=== PATIENT | female | born 1950 | race Caucasian/White ===

== ENCOUNTER → 2016-10-22 | Outpatient (CLI) | payer MEDICARE, OTHER | LOC: RAD 08:31 | PROVIDERS: ATTEND Surgery | DX: R10.31 Right lower quadrant pain (principal) | CPT/HCPCS: 74177; 82565 ==

== ENCOUNTER → 2016-12-25 | Outpatient (CLI) | payer MEDICARE, OTHER ==
[2016-12-25 13:08] LABS: ABSOLUTE BASOPHILS # (AUTO) 0.1 10^3/uL (0.0-0.2); ABSOLUTE EOSINOPHILS # (AUTO) 0.4 10^3/uL (0.0-0.6); ABSOLUTE MONOCYTES (AUTO) 0.6 10^3/uL (0.1-1.4); ABSOLUTE NEUT (AUTO) 5.5 10^3/uL (1.7-8.2); BASOPHILS % (AUTO) 1.1 % (0-2); EOSINOPHILS % (AUTO) 4.2 % (0-6); HEMATOCRIT 35.4 % (36.0-47.0); HEMOGLOBIN 12.5 g/dL (12.0-15.5); HGB HCT DIFFERENCE 2.1; LYMPHOCYTES % (AUTO) 31.2 % (13-45); MEAN CORPUSCULAR HEMOGLOBIN 31.6 pg (27.0-33.4); MEAN CORPUSCULAR HGB CONC 35.3 g/dL (32.0-36.0); MEAN CORPUSCULAR VOLUME 90 fl (80-97); MONOCYTES % (AUTO) 6.8 % (3-13); RED BLOOD COUNT 3.96 10^6/uL (3.72-5.28); SEGMENTED NEUTROPHILS % (AUTO) 56.7 % (42-78); WHITE BLOOD COUNT 9.6 10^3/uL (4.0-10.5)
[2016-12-25 13:10] LABS: APPEARANCE,URINE SLIGHTLY-CLOUDY; BILIRUBIN,URINE NEGATIVE (NEGATIVE); GLUCOSE, URINE NEGATIVE (NEGATIVE); KETONES,URINE NEGATIVE (NEGATIVE); LEUKOCYTE ESTERASE,URINE SMALL (NEGATIVE); NITRITE,URINE NEGATIVE (NEGATIVE); PROTEIN,URINE NEGATIVE (NEGATIVE); URINE SPECIFIC GRAVITY 1.015; UROBILINOGEN,URINE NEGATIVE mg/dL (<2.0)
[2016-12-25 13:17] LABS: BLOOD UREA NITROGEN 26 mg/dL (7-20); CALCIUM 10.1 mg/dL (8.4-10.2); CARBON DIOXIDE 21 mmol/L (22-30); CREATININE RESULT 1.04 mg/dL (0.52-1.25); GLUCOSE 91 mg/dL (75-110); SODIUM 145.6 mmol/L (137-145)
[2016-12-25 13:18] LABS: ANION GAP 17 (5-19); CHLORIDE 108 mmol/L (98-107)
--- NOTE | 2016-12-25 13:20 | EKG REPORT ---
SEVERITY:- ABNORMAL ECG - SINUS RHYTHM NONSPECIFIC T ABNORMALITIES, ANTERIOR LEADS, UNCHANGED FROM 2015 EKG. : Confirmed by: Victor Hugo Hyde MD 25-Dec-2016 13:19:03
== END ==
LOC: OD 11:37
PROVIDERS: ATTEND Orthopaedic Surgery
DX: Z01.818 Encounter for other preprocedural examination (principal)
CPT/HCPCS: 36415; 71020; 80048; 81001; 85025; 93005; 93010

== ENCOUNTER → 2016-12-27 | Outpatient (CLI) | payer MEDICARE, OTHER | LOC: RAD 14:02 | PROVIDERS: ATTEND Student in an Organized Health Care Education/Training Program | DX: R91.1 Solitary pulmonary nodule (principal) | CPT/HCPCS: 71250 ==

== ENCOUNTER 2017-01-14 07:30 | Inpatient (IN) | payer MEDICARE, OTHER ==
[~2017-01-14 07:30] MED LIST: BUPIVACAINE INJ/PF LIPOSOME/PF 266 MG/20 ML SDV IJ PRN; IBUPROFEN 800 MG/NS 250 ML IV PRN; LACTATED RINGERS 1000 ML IV PRN; LANSOPRAZOLE 15 MG TAB.RAP.DR PO PRN; OXYCODONE HCL SR 10 MG TABLET PO PRN; SCOPOLAMINE HYDROBROMIDE 1.5 MG PATCH.TD72 TOP PRN; VANCOMYCIN HCL 1,000 MG in DEXTROSE 5%-WATER 250 ML IV PRN
[2017-01-14] MEDS ORDERED: ROCURONIUM BROMIDE INJ 50 MG/5 ML VIAL IV ONE (07:57)
[2017-01-14] MEDS ORDERED: SUCCINYLCHOLINE CHLORIDE INJ 200 MG/10 ML VIAL ONE (07:57)
[2017-01-14] MEDS ORDERED: THROMBIN (BOVINE) 5000 UNIT EPITAXIS KIT ONE (08:22)
[2017-01-14] MEDS ORDERED: THROMBIN (BOVINE) TOPICAL 20000 UNIT VIAL ONE (08:22)
[2017-01-14] MEDS ORDERED: BUPIVACAINE INJ/PF LIPOSOME/PF 266 MG/20 ML SDV ONE (10:57)
[2017-01-14] MEDS ORDERED: TRANEXAMIC ACID INJ/PF 1,000 MG/10 ML SDV IV ONE ×3 (11:07→14:00)
[2017-01-14] MEDS ORDERED: DEXMEDETOMIDINE INJ 80 MCG/20 ML VIAL IV ONE (11:07)
[2017-01-14] MEDS ORDERED: PROPOFOL INJ 200 MG/20 ML VIAL IV ONE (11:07)
[2017-01-14] MEDS ORDERED: MIDAZOLAM 2 MG/2 ML INJ ONE (11:07)
[2017-01-14] MEDS ORDERED: CEFAZOLIN INJ 1 GM VIAL ONE ×2 (11:08→11:09)
[2017-01-14] MEDS ORDERED: FENTANYL CITRATE INJ/PF 250 MCG/5 ML AMPULE ONE (11:26)
[2017-01-14] MEDS ORDERED: HYDROMORPHONE HCL INJ/PF 2 MG/ML AMPULE ONE ×2 (11:26→14:02)
[2017-01-14] MEDS ORDERED: ONDANSETRON HCL INJ/PF 4 MG/2 ML SDV IV PRN ×2 (12:18→12:46)
[2017-01-14] MEDS ORDERED: FENTANYL CITRATE INJ/PF 100 MCG/2 ML AMPUL IV PRN ×3 (12:18)
[2017-01-14] MEDS ORDERED: PROMETHAZINE HCL INJ 25 MG/1 ML VIAL IV PRN (12:18)
--- NOTE | 2017-01-14 12:45 | Operative Report ---
Operative Report DATE OF SURGERY: 01/14/17 PREOPERATIVE DIAGNOSIS: Left knee arthritis OPERATION: Left knee arthroplasty SURGEON: TARSHA CARVER ANESTHESIA: GA TISSUE REMOVED OR ALTERED: Bone to pathology PROCEDURE: Implants used: Femur: 1. Triathlon #4 CR femur Tibia: 3-tibia Tibial liner: 11 mm CS insert Patella: 29 mm oval patella Procedure with the patient supine on the operating table the left the limb is prepped and draped in a sterile fashion. The limb was elevated for exsanguination and the tourniquet inflated to 280 torr. A standard midline median parapatellar approach the knee is taken. Access is gained to the femoral canal through the intercondylar notch. Intramedullary alignment instrumentation used to resect 10 mm of distal femur in 5 of valgus. Sizing guide indicated a size 4 femur. Appropriate cutting jig is then used to fashion anterior posterior and chamfer cuts. A trial reduction femurs performed and this is judged to be adequate. Attention was next turned to the tibia. Using an extra medullary alignment system 9 millimeters was resected off the lateral tibial plateau. This is sized to a size 3 tibia. A trial reduction was now performed with a for femur and a 3 tibia using a 11 millimeters spacer. It is full extension and central patellofemoral tracking. The articular surface the patella was next resected using an oscillating saw. All trial implants were removed. Polymethylmethacrylate is mixed and used to cement the above implants in place. On adequate curing the cement excess cement was removed the tourniquet was deflated hemostasis obtained the wound is then closed in layers using interrupted Vicryl followed by jamel. A sterile compressive dressing was applied and the patient returned to recovery room in satisfactory condition.
[2017-01-14] MEDS ORDERED: DIPHENHYDRAMINE HCL 50 MG/ML VIAL IV PRN (12:46)
[2017-01-14] MEDS ORDERED: RINGERS SOLUTION,LACTATED 1,000 ML IV PRN (12:46)
[2017-01-14] MEDS ORDERED: MORPHINE SULFATE 10 MG/ML INJ IM PRN (12:46)
[2017-01-14] MEDS ORDERED: ONDANSETRON 4 MG TAB.RAPDIS PO PRN (12:46)
[2017-01-14] MEDS ORDERED: MORPHINE SULFATE 10 MG/ML INJ IV PRN ×3 (12:46)
[2017-01-14] MEDS ORDERED: ACETAMINOPHEN 325 MG TABLET PO PRN (12:46)
[2017-01-14] MEDS ORDERED: MAG HYDROX/AL HYDROX/SIMETH SUSP 30 ML UDCUP PO PRN (12:46)
[2017-01-14] MEDS ORDERED: ZOLPIDEM TARTRATE 5 MG TABLET PO PRN (12:46)
[2017-01-14] MEDS ORDERED: FENTANYL CITRATE INJ/PF 100 MCG/2 ML AMPUL ONE (13:30)
--- NOTE | 2017-01-14 13:33 | RADIOLOGY REPORT (SQ) ---
EXAM DESCRIPTION: KNEE LEFT 2 VIEWS COMPLETED DATE/TIME: 01/14/2017 1:21 pm REASON FOR STUDY: Post OP -Long Cassette in PACU M17.12 UNILATERAL PRIMARY OSTEOARTHRITIS, LEFT KNE E COMPARISON: None. NUMBER OF VIEWS: Two views. TECHNIQUE: AP and lateral radiographic images acquired of the left knee. LIMITATIONS: None. FINDINGS: MINERALIZATION: Normal. BONES: There is a left knee arthroplasty in good position. JOINT: No effusion. SOFT TISSUES: No soft tissue swelling. No radio-opaque foreign body. OTHER: No other significant finding. IMPRESSION: Left knee arthroplasty in good position. TECHNICAL DOCUMENTATION: JOB ID: [id number] [employer]- All Rights Reserved
[2017-01-14] MEDS ORDERED: ACETAMINOPHEN 100 ML IV ONE (14:01)
[2017-01-14] MEDS: IBUPROFEN 800 MG in NORMAL SALINE 250 ML IV SCH (19:33)
[2017-01-14] MEDS: SENNOSIDES/DOCUSATE 8.6-50 MG 1 EACH TABLET PO SCH (19:34)
[2017-01-14] MEDS: RIVAROXABAN 10 MG TABLET PO SCH (20:49)
[2017-01-14] MEDS: OXYCODONE HCL SR 10 MG TABLET PO SCH (20:49)
[2017-01-14] MEDS: DULOXETINE HCL 30 MG CAPSULE.DR PO SCH (20:51)
[2017-01-14] MEDS: TRAZODONE HCL 50 MG TABLET PO SCH (20:51)
[2017-01-14] MEDS: OXYCODONE HCL IR 5 MG TABLET PO PRN (22:11)
[2017-01-15] MEDS ORDERED: VANCOMYCIN HCL 1,000 MG in DEXTROSE 5%-WATER 250 ML IV ONE (01:00)
[2017-01-15] MEDS: HYDROMORPHONE HCL INJ/PF 2 MG/ML AMPULE IV PRN ×3 (01:20→11:58)
[2017-01-15] MEDS: IBUPROFEN 800 MG in NORMAL SALINE 250 ML IV SCH ×3 (03:00→17:43)
[2017-01-15] MEDS: OXYCODONE HCL IR 5 MG TABLET PO PRN (04:08)
[2017-01-15 04:47] LABS: HEMATOCRIT 30.5 % (36.0-47.0); HEMOGLOBIN 10.5 g/dL (12.0-15.5); MEAN CORPUSCULAR HEMOGLOBIN 31.6 pg (27.0-33.4); MEAN CORPUSCULAR HGB CONC 34.5 g/dL (32.0-36.0); MEAN CORPUSCULAR VOLUME 91 fl (80-97); RED BLOOD COUNT 3.34 10^6/uL (3.72-5.28); RED CELL DISTRIBUTION WIDTH 14.6 % (11.5-14.0); WHITE BLOOD COUNT 7.9 10^3/uL (4.0-10.5)
[2017-01-15 05:07] LABS: ANION GAP 8 (5-19); BLOOD UREA NITROGEN 19 mg/dL (7-20); CALCIUM 8.5 mg/dL (8.4-10.2); CARBON DIOXIDE 22 mmol/L (22-30); CHLORIDE 109 mmol/L (98-107); CREATININE RESULT 1.24 mg/dL (0.52-1.25); GLUCOSE 95 mg/dL (75-110); SODIUM 139.1 mmol/L (137-145)
[2017-01-15] MEDS: LANSOPRAZOLE 30 MG TAB.RAP.DR PO SCH (05:36)
--- NOTE | 2017-01-15 06:46 | PDOC PROGRESS REPORT ---
Subjective Progress Note for:: 01/15/17 Subjective:: Patient with minor complaints of pain Physical Exam Vital Signs: Temp Pulse Resp BP Pulse Ox 37.1 C 60 18 98/61 L 93 01/15/17 04:00 01/15/17 04:00 01/15/17 04:00 01/15/17 04:00 01/15/17 04:35 Pulse Oximeter Continuous Start: 01/14/17 16: 16 Freq: Status: Active Document 01/15/17 04:35 JSM (Rec: 01/15/17 04:43 JSM [id number]) Pulse Oximetry Assessment Oxygen Saturation (92-100) 93 Oxygen Delivery Method Room Air Equipment Usage Equipment in Use Continuous SpO2 Machine # 5 Intake & Output 01/13/17 01/14/17 01/15/17 06:59 06:59 06:59 Intake Total 1940 Output Total 1450 Balance 490 Weight 80.7 kg General appearance: PRESENT: mild distress Head exam: PRESENT: normocephalic Respiratory exam: PRESENT: unlabored Cardiovascular exam: PRESENT: RRR Pulses: PRESENT: +1 pedal pulses bilateral Vascular exam: PRESENT: normal capillary refill GI/Abdominal exam: PRESENT: soft Rectal exam: PRESENT: deferred Extremities exam: PRESENT: other - Lower extremity dressing clean dry and intact. Distal neurovascular examination is intact. Psychiatric exam: PRESENT: appropriate affect, normal mood. ABSENT: homicidal ideation, suicidal ideation Skin exam: PRESENT: dry, intact, warm. ABSENT: cyanosis, rash Results Laboratory Results: 01/15/17 04:25 01/15/17 04:25 01/14/17 01/15/17 01/15/17 11:02 04:25 04:25 WBC 7.9 RBC 3.34 L Hgb 10.5 L Hct 30.5 L MCV 91 MCH 31.6 MCHC 34.5 RDW 14.6 H Plt Count 236 Sodium 139.1 Potassium 4.1 4.0 Chloride 109 H Carbon Dioxide 22 Anion Gap 8 BUN 19 Creatinine 1.24 Est GFR ( Amer) 52 L Est GFR (Non-Af Amer) 43 L Glucose 95 Calcium 8.5 Impressions: Knee X-Ray 01/14/17 12:47 IMPRESSION: Left knee arthroplasty in good position. Status: Imported from PACS Assessment & Plan - Diagnosis (1) Arthritis of knee, left Is this a current diagnosis for this admission?: YesPlan: 6-year-old white female postop day 1 left knee arthroplasty with uneventful postoperative course. She made good progress with physical therapy yesterday. She will continue with physical therapy today. Anticipate discharge home tomorrow with home health custodial health physical therapy - Time Time Spent with patient: 15-24 minutes Anticipated discharge: Home with Homehealth Within: within 24 hours
[2017-01-15] MEDS ORDERED: EPA PO SCH (08:00)
[2017-01-15] MEDS ORDERED: DHA PO SCH (08:00)
[2017-01-15] MEDS ORDERED: OMEGA PO SCH (08:00)
[2017-01-15] MEDS ORDERED: FISH OIL PO SCH (08:00)
[2017-01-15] MEDS ORDERED: (PENDING PHARMACY ID) (Potassium Chloride [Potassium Chloride] 10 MEQ) PO SCH (08:00)
[2017-01-15] MEDS ORDERED: [UNRECOGNIZED DRUG - OTHER] PO SCH (10:00)
[2017-01-15] MEDS ORDERED: HCTZ PO SCH (10:00)
[2017-01-15] MEDS ORDERED: B LONGUM PO SCH (10:00)
[2017-01-15] MEDS ORDERED: B BIFIDUM PO SCH (10:00)
[2017-01-15] MEDS ORDERED: BISOPROLOL FUMARATE PO SCH (10:00)
[2017-01-15] MEDS ORDERED: GASSERI PO SCH (10:00)
[2017-01-15] MEDS: OMEGA-3 ACID ETHYL ESTERS 1 GM CAPSULE PO SCH (10:02)
[2017-01-15] MEDS: SENNOSIDES/DOCUSATE 8.6-50 MG 1 EACH TABLET PO SCH ×2 (10:02→17:43)
[2017-01-15] MEDS: PRENATAL VITAMIN W-O CA NO5/FE FUMARATE/FA CAPSULE PO SCH (10:02)
[2017-01-15] MEDS: POTASSIUM CHLORIDE 10 MEQ TABLET.SA PO SCH (10:03)
[2017-01-15] MEDS: LACTOBACILLUS ACIDOPHILUS 250 MG TAB PO SCH (10:03)
[2017-01-15] MEDS: TRIAMTERENE/HYDROCHLOROTHIAZIDE 37.5-25 MG TABLET PO SCH (10:03)
[2017-01-15] MEDS: OXYCODONE HCL SR 10 MG TABLET PO SCH ×2 (10:04→22:54)
[2017-01-15] MEDS: TRAZODONE HCL 50 MG TABLET PO SCH (17:45)
[2017-01-15] MEDS ORDERED: DIPHENHYDRAMINE HCL 25 MG CAPSULE PO PRN (19:31)
[2017-01-15] MEDS ORDERED: TRAZODONE HCL 50 MG TABLET PO SCH (22:00)
[2017-01-15] MEDS: RIVAROXABAN 10 MG TABLET PO SCH (22:52)
[2017-01-15] MEDS: DULOXETINE HCL 30 MG CAPSULE.DR PO SCH (22:52)
[2017-01-16 05:15] LABS: HEMATOCRIT 29.2 % (36.0-47.0); HEMOGLOBIN 10.3 g/dL (12.0-15.5); HGB HCT DIFFERENCE 1.7; MEAN CORPUSCULAR HEMOGLOBIN 31.8 pg (27.0-33.4); MEAN CORPUSCULAR HGB CONC 35.2 g/dL (32.0-36.0); MEAN CORPUSCULAR VOLUME 91 fl (80-97); RED BLOOD COUNT 3.22 10^6/uL (3.72-5.28); RED CELL DISTRIBUTION WIDTH 14.3 % (11.5-14.0); WHITE BLOOD COUNT 10.7 10^3/uL (4.0-10.5)
[2017-01-16] MEDS: LANSOPRAZOLE 30 MG TAB.RAP.DR PO SCH (06:09)
[2017-01-16] MEDS: HYDROMORPHONE HCL INJ/PF 2 MG/ML AMPULE IM PRN ×2 (06:10→11:02)
--- NOTE | 2017-01-16 08:14 | PDOC DISCHARGE SUMMARY ---
General - Admit/Disc Date/PCP Admission Date/Primary Care Provider: 01/14/17 10:21 ED PHILLIPS, Discharge Date: 01/16/17 - Discharge Diagnosis (1) Arthritis of knee, left Is this a current diagnosis for this admission?: Yes - Additional Information Resuscitation Status: Full Code Discharge Diet: As Tolerated, Regular Discharge Activity: Activity As Tolerated, Balance Activity w/Rest Home Medications: Duloxetine HCl 60 mg PO QHS 06/29/15 Bisoprolol Fumarate/Hctz [Ziac 5-6.25 mg Tablet] 1 tab PO QAM 06/04/16 Potassium Chloride 10 meq PO QAM 06/04/16 Trazodone HCl 100 mg PO QPM 06/04/16 Triamterene/Hydrochlorothiazid [Triamterene-Hctz 37.5-25 mg Tb] 37.5 mg PO QAM 06/04/16 l Gasseri/B Bifidum/B Longum [En[facility]v [facility] Capsule] 1 each PO DAILY Aspirin [Aspirin EC] 81 mg PO QAM 01/10/17 Ibuprofen [Motrin 600 mg Tablet] 600 mg PO DAILY PRN 01/10/17 Lindsay-3/Dha/Epa/Fish Oil [Fish Oil Lindsay-3 EC 1,200 mg] 1 each PO QAM 01/10/17 Oxycodone HCl [Oxy-Ir 5 mg Tablet] 5 mg PO Q6HP PRN #0 tablet 01/16/17 Rivaroxaban [Xarelto 10 mg Tablet] 10 mg PO QHS #0 tablet 01/16/17 History of Present Illness History of Present Illness: JAY NESBITT is a 66 year old female with progressive left knee pain and functional disability secondary osteoarthritis. Patient is admitted for elective left knee arthroplasty. Hospital Course Hospital Course: Patient is admitted through the operating room where she undergoes uncomplicated left knee arthroplasty. She was returned to the floor in satisfactory condition. She makes excellent progress with physical therapy and subsequently for discharge home on postop day #2. Physical Exam Vital Signs: Temp Pulse Resp BP Pulse Ox 38.1 C H 92 20 118/91 H 100 01/16/17 00:00 01/16/17 00:00 01/16/17 00:00 01/16/17 00:00 01/16/17 00:00 Pulse Oximeter Continuous Start: 01/14/17 16: 16 Freq: Status: Active Document 01/15/17 04:35 SELMA (Rec: 01/15/17 04:43 SELMA [id number]) Pulse Oximetry Assessment Oxygen Saturation (92-100) 93 Oxygen Delivery Method Room Air Equipment Usage Equipment in Use Continuous SpO2 Machine # 5 Intake & Output 01/15/17 01/16/17 01/17/17 06:59 06:59 06:59 Intake Total 1940 1710 Output Total 1450 Balance 490 1710 Weight 80.7 kg 79.1 kg General appearance: PRESENT: mild distress Head exam: PRESENT: normocephalic Eye exam: PRESENT: EOMI Respiratory exam: PRESENT: unlabored Cardiovascular exam: PRESENT: RRR Pulses: PRESENT: +1 pedal pulses bilateral Vascular exam: PRESENT: normal capillary refill GI/Abdominal exam: PRESENT: soft Rectal exam: PRESENT: deferred Extremities exam: PRESENT: other - Left lower extremity picot dressing clean dry and intact. There is a modest amount of calf edema. Distal neurovascular examination is intact. Neurological exam: PRESENT: alert, awake, oriented to person, oriented to place , oriented to time, oriented to situation. ABSENT: motor sensory deficit Psychiatric exam: PRESENT: appropriate affect, normal mood. ABSENT: homicidal ideation, suicidal ideation Skin exam: PRESENT: dry, intact, warm. ABSENT: cyanosis, rash Results Laboratory Results: 01/16/17 04:37 01/15/17 04:25 01/16/17 04:37 WBC 10.7 H RBC 3.22 L Hgb 10.3 L Hct 29.2 L MCV 91 MCH 31.8 MCHC 35.2 RDW 14.3 H Plt Count 227 Impressions: Knee X-Ray 01/14/17 12:47 IMPRESSION: Left knee arthroplasty in good position. Status: Imported from PACS Qualifiers PATEINT BEING DISCHARGED WITH ANY OF THE FOLLOWING DIAGNOSIS?: No VTE patient discharged on overlapping Therapy?: Yes Plan Discharge Plan: To be discharged home with home health nursing, home health physical therapy, will walker, bedside commode. Visiting nurse service to change the left picot dressing on postop day #7 replaced with an OpSite. Follow-up will be with Dr. Aguilar in the [facility] for surgery approximately 2 weeks for staple removal. Time Spent: Less than 30 Minutes
[2017-01-16 08:18] VITALS: BP 98/63
[2017-01-16] MEDS: OXYCODONE HCL IR 5 MG TABLET PO PRN (10:22)
[2017-01-16] MEDS: LACTOBACILLUS ACIDOPHILUS 250 MG TAB PO SCH (10:22)
[2017-01-16] MEDS: PRENATAL VITAMIN W-O CA NO5/FE FUMARATE/FA CAPSULE PO SCH (10:23)
[2017-01-16] MEDS: OMEGA-3 ACID ETHYL ESTERS 1 GM CAPSULE PO SCH (10:23)
[2017-01-16] MEDS: OXYCODONE HCL SR 10 MG TABLET PO SCH (10:23)
[2017-01-16] MEDS: SENNOSIDES/DOCUSATE 8.6-50 MG 1 EACH TABLET PO SCH (10:23)
[2017-01-16] MEDS: POTASSIUM CHLORIDE 10 MEQ TABLET.SA PO SCH (10:24)
[2017-01-16] MEDS: TRIAMTERENE/HYDROCHLOROTHIAZIDE 37.5-25 MG TABLET PO SCH (10:28)
== END 2017-01-16 11:15 | disposition home health service (06) | DRG 470 ==
LOC: INOR 10:21 → 4S 15:42
PROVIDERS: ADMIT Orthopaedic Surgery; ATTEND Orthopaedic Surgery
PROC: 0SRD0J9 Replacement of Left Knee Joint with Synthetic Substitute, Cemented, Open Approach (ICD-10-PCS; principal; 2017-01-14 12:30)
DX: M17.12 Unilateral primary osteoarthritis, left knee (principal); F32.9 Major depressive disorder, single episode, unspecified; F41.9 Anxiety disorder, unspecified; F43.10 Post-traumatic stress disorder, unspecified; I10 Essential (primary) hypertension; G47.00 Insomnia, unspecified; Z79.82 Long term (current) use of aspirin; Z79.899 Other long term (current) drug therapy; Z88.6 Allergy status to analgesic agent; Z88.8 Allergy status to other drugs, medicaments and biological substances; Z90.49 Acquired absence of other specified parts of digestive tract; Z90.710 Acquired absence of both cervix and uterus; Z88.1 Allergy status to other antibiotic agents
CPT/HCPCS: 01402; 36415; 80048; 84132; 85027; 88305; 88311; 94762; 94799; C9290; G8978-GP; G8979-GP; G8987-GO; G8988-GO; G8989-GO; J0131; J0330; J0690; J1170; J1200; J1741; J2250; J2704; J3010; J3370; J3490; J7050; J7060

== ENCOUNTER → 2017-03-08 | Outpatient (CLI) | payer MEDICARE, OTHER ==
--- NOTE | 2017-03-08 13:55 | RADIOLOGY REPORT (SQ) ---
EXAM DESCRIPTION: CHEST PA/LATERAL COMPLETED DATE/TIME: 03/08/2017 1:39 pm REASON FOR STUDY: PRE OP COMPARISON: 12/25/2016 EXAM PARAMETERS: NUMBER OF VIEWS: two views TECHNIQUE: Digital Frontal and Lateral radiographic views of the chest acquired. RADIATION DOSE: NA LIMITATIONS: none FINDINGS: LUNGS AND PLEURA: Nodular density overlying the right midlung field is again noted this pr esumably related to old rib fracture which is demonstrated on CT. No pulmonary nodules are noted. T here is no consolidation or effusions. MEDIASTINUM AND HILAR STRUCTURES: No masses or contour abnormalities. HEART AND VASCULAR STRUCTURES: Heart normal size. No evidence for failure. BONES: No acute findings. HARDWARE: None in the chest. OTHER: No other significant finding. IMPRESSION: NO SIGNIFICANT RADIOGRAPHIC FINDING IN THE CHEST. TECHNICAL DOCUMENTATION: JOB ID: [id number] [employer]- All Rights Reserved
[2017-03-08 14:25] LABS: ABSOLUTE BASOPHILS # (AUTO) 0.1 10^3/uL (0.0-0.2); ABSOLUTE EOSINOPHILS # (AUTO) 0.2 10^3/uL (0.0-0.6); ABSOLUTE LYMPHOCYTES (AUTO) 3.7 10^3/uL (0.5-4.7); ABSOLUTE MONOCYTES (AUTO) 0.5 10^3/uL (0.1-1.4); BASOPHILS % (AUTO) 0.8 % (0-2); EOSINOPHILS % (AUTO) 2.2 % (0-6); HEMATOCRIT 37.2 % (36.0-47.0); HEMOGLOBIN 12.3 g/dL (12.0-15.5); HGB HCT DIFFERENCE -0.3; LYMPHOCYTES % (AUTO) 39.2 % (13-45); MEAN CORPUSCULAR HEMOGLOBIN 29.4 pg (27.0-33.4); MEAN CORPUSCULAR HGB CONC 32.9 g/dL (32.0-36.0); MEAN CORPUSCULAR VOLUME 89 fl (80-97); MONOCYTES % (AUTO) 5.3 % (3-13); RED BLOOD COUNT 4.17 10^6/uL (3.72-5.28); RED CELL DISTRIBUTION WIDTH 15.2 % (11.5-14.0); SEGMENTED NEUTROPHILS % (AUTO) 52.5 % (42-78); WHITE BLOOD COUNT 9.5 10^3/uL (4.0-10.5)
[2017-03-08 14:28] LABS: APPEARANCE,URINE CLEAR; BILIRUBIN,URINE NEGATIVE (NEGATIVE); GLUCOSE, URINE NEGATIVE (NEGATIVE); KETONES,URINE NEGATIVE (NEGATIVE); LEUKOCYTE ESTERASE,URINE SMALL (NEGATIVE); NITRITE,URINE NEGATIVE (NEGATIVE); PROTEIN,URINE NEGATIVE (NEGATIVE); URINE SPECIFIC GRAVITY 1.004; UROBILINOGEN,URINE NEGATIVE mg/dL (<2.0)
[2017-03-08 14:48] LABS: ANION GAP 13 (5-19); BLOOD UREA NITROGEN 26 mg/dL (7-20); CALCIUM 9.5 mg/dL (8.4-10.2); CARBON DIOXIDE 20 mmol/L (22-30); CHLORIDE 107 mmol/L (98-107); CREATININE RESULT 1.01 mg/dL (0.52-1.25); GLUCOSE 81 mg/dL (75-110); POTASSIUM 4.1 mmol/L (3.6-5.0); SODIUM 139.9 mmol/L (137-145)
--- NOTE | 2017-03-08 20:16 | EKG REPORT ---
SEVERITY:- ABNORMAL ECG - SINUS RHYTHM ABNORMAL T, CONSIDER ISCHEMIA, ANTERIOR LEADS : Confirmed by: Victor Hugo Hyde MD 08-Mar-2017 20:15:53
== END ==
LOC: OD 12:50
PROVIDERS: ATTEND Orthopaedic Surgery
DX: Z01.810 Encounter for preprocedural cardiovascular examination (principal); Z01.812 Encounter for preprocedural laboratory examination; Z01.818 Encounter for other preprocedural examination
CPT/HCPCS: 36415; 71020; 80048; 81001; 85025; 93005; 93010

== ENCOUNTER → 2017-04-05 | Outpatient (CLI) | payer MEDICARE, OTHER ==
[2017-04-08 09:24] LABS: ABSOLUTE BASOPHILS # (AUTO) 0.1 10^3/uL (0.0-0.2); ABSOLUTE EOSINOPHILS # (AUTO) 0.2 10^3/uL (0.0-0.6); ABSOLUTE LYMPHOCYTES (AUTO) 2.9 10^3/uL (0.5-4.7); ABSOLUTE MONOCYTES (AUTO) 0.6 10^3/uL (0.1-1.4); ABSOLUTE NEUT (AUTO) 4.7 10^3/uL (1.7-8.2); BASOPHILS % (AUTO) 0.9 % (0-2); EOSINOPHILS % (AUTO) 2.3 % (0-6); HEMATOCRIT 35.4 % (36.0-47.0); HEMOGLOBIN 12.2 g/dL (12.0-15.5); HGB HCT DIFFERENCE 1.2; LYMPHOCYTES % (AUTO) 33.9 % (13-45); MEAN CORPUSCULAR HEMOGLOBIN 30.8 pg (27.0-33.4); MEAN CORPUSCULAR HGB CONC 34.4 g/dL (32.0-36.0); MEAN CORPUSCULAR VOLUME 90 fl (80-97); MONOCYTES % (AUTO) 6.7 % (3-13); RED BLOOD COUNT 3.96 10^6/uL (3.72-5.28); RED CELL DISTRIBUTION WIDTH 15.6 % (11.5-14.0); SEGMENTED NEUTROPHILS % (AUTO) 56.2 % (42-78); WHITE BLOOD COUNT 8.4 10^3/uL (4.0-10.5)
[2017-04-08 09:35] LABS: ALANINE AMINOTRANSFERASE 24 U/L (9-52); ALBUMIN 4.4 g/dL (3.5-5.0); ALKALINE PHOSPHATASE 90 U/L (38-126); ANION GAP 14 (5-19); ASPARTATE AMINO TRANSFERASE 21 U/L (14-36); BILIRUBIN,DIRECT 0.4 mg/dL (0.0-0.4); BILIRUBIN,TOTAL 0.6 mg/dL (0.2-1.3); BLOOD UREA NITROGEN 30 mg/dL (7-20); CALCIUM 10.1 mg/dL (8.4-10.2); CARBON DIOXIDE 20 mmol/L (22-30); CHLORIDE 108 mmol/L (98-107); CREATININE RESULT 1.15 mg/dL (0.52-1.25); GLUCOSE 89 mg/dL (75-110); POTASSIUM 3.9 mmol/L (3.6-5.0); SODIUM 142.1 mmol/L (137-145); TOTAL PROTEIN 7.9 g/dL (6.3-8.2)
[2017-04-08 10:05] LABS: ERYTHROCYTE SEDIMENTATION RATE 25 mm/hr (0-30)
[2017-04-08 10:10] LABS: THYROID STIMULATING HORMONE 0.78 uIU/mL (0.47-4.68)
== END ==
LOC: LAB 16:05
PROVIDERS: ATTEND Student in an Organized Health Care Education/Training Program
DX: R53.82 Chronic fatigue, unspecified (principal); F41.1 Generalized anxiety disorder; R63.5 Abnormal weight gain; M13.859 Other specified arthritis, unspecified hip
CPT/HCPCS: 36415; 80053; 82306; 82607; 84439; 84443; 85025; 85652

== ENCOUNTER → 2017-04-05 | Day surgery (SDC) | payer MEDICARE, OTHER ==
--- NOTE | 2017-04-05 16:38 | RADIOLOGY REPORT (SQ) ---
EXAM DESCRIPTION: PICC INSERTION; U/S GUIDE FOR VASCULAR ACCESS; FLUORO/CV PLACEMENT COMPLETED DATE/TIME: 04/05/2017 4:09 pm REASON FOR STUDY: ENCOUNTER FOR ADJUSTMENT AND MANAGEMENT OF VASCULAR ACCESS DEVICE; IV ACCESS; IV A CCESS FOR OPERATION M25.562 PAIN IN LEFT KNEE Z45.2 ENCOUNTER FOR ADJUSTMENT AND MANAGEMENT OF VAD COMPARISON: None. FLUOROSCOPY TIME: 1.4 minutes 1 digital radiographic and 1 ultrasound image saved to PACS. TECHNIQUE: Fluoroscopic and ultrasound guided PICC placement. LIMITATIONS: None. PROCEDURE: After written consent and assessment were obtained, the patient was brought into the fluo roscopy room and place supine on the table. Ultrasound was used on the patient's right arm for PICC access. The right arm was prepped and draped in a sterile fashion along with the ultrasound probe. Th e entry site was anesthetized with 1% lidocaine. A 21 gauge 7 cm needle was advanced through the skin and into the right basilic vein under live ultrasound guidance. An ultrasound image was saved to [facility] confirming access site. A .018 guide wire was then inserted through the needle and into the venou s system. The needle was the removed and an 11 blade scalpel was used to make a 1cm skin incision. A 5 fr peel-away sheath was advanced over the wire and into the venous system. A measurement was then made using the existing wire and live fluoroscopic guidance. The wire was then removed and the trimme d. The PICC was advanced through the peel-away sheath and into the venous system. The peel-away sheat h was removed and the catheter was adhered to the patients arm with a stat lock. The catheter was the n aspirated and flushed and a sterile bandage was placed over the access site. A fluoroscopic spot i mage was saved to PACS confirming the catheter tip within the superior vena cava. Initial attempt at placement of the PICC catheter through the left arm was unsuccessful. IMPRESSION: SUCCESSFUL PLACEMENT OF A 5 FR DUAL LUMEN 33 CM PICC IN THE right basilic VEIN. COMMENT: Patient medication list reviewed: Yes- Quality ID# 130:Eligible professional attests to doc umenting in the medical record they obtained, updated, or reviewed the patient's current medications. . Quality ID 145: Final reports for procedures using fluoroscopy that document radiation exposure valerie nhi, or exposure time and number of fluorographic images (if radiation exposure indices are not avail able) Quality ID #76: The patient was prepped and draped using maximum sterile barrier technique including cap, mask, sterile gown, sterile gloves, a large sterile sheet, hand hygiene, and 2% Chlorhexidine fo r cutaneous antisepsis. When ultrasound is used, sterile ultrasound techniques are followed requiring sterile gel and sterile probes. TECHNICAL DOCUMENTATION: JOB ID: [id number] [employer]- All Rights Reserved
== END ==
LOC: RAD 14:32
PROVIDERS: ATTEND Orthopaedic Surgery
PROC: 05HB33Z Insertion of Infusion Device into Right Basilic Vein, Percutaneous Approach (ICD-10-PCS; principal; 2017-04-05)
DX: M25.562 Pain in left knee (principal); I10 Essential (primary) hypertension; G83.10 Monoplegia of lower limb affecting unspecified side; R29.898 Other symptoms and signs involving the musculoskeletal system; M16.11 Unilateral primary osteoarthritis, right hip; Z96.652 Presence of left artificial knee joint; Z45.2 Encounter for adjustment and management of vascular access device
CPT/HCPCS: 36569; 77001; 76937; J1642

== ENCOUNTER 2017-04-08 08:08 | Inpatient (IN) | payer MEDICARE, OTHER ==
[~2017-04-08 08:08] MED LIST changes: +CEFAZOLIN INJ 1 GM VIAL IV PRN; +DEXAMETHASONE SOD PHOSPHATE INJ 4 MG/1 ML VIAL ONE; +GLYCOPYRROLATE INJ 0.4 MG/2 ML VIAL ONE; +LIDOCAINE 0.5% INJ-PF (5 MG/ML) 50 ML SDV SUBCUT PRN; +LIDOCAINE 2% INJ-PF (20 MG/ML) 10 ML AMPUL ONE; +METOCLOPRAMIDE HCL INJ/PF 10 MG/2 ML SDV ONE; +ONDANSETRON HCL INJ/PF 4 MG/2 ML SDV ONE; +SUCCINYLCHOLINE CHLORIDE INJ 200 MG/10 ML VIAL ONE
[2017-04-08] MEDS ORDERED: THROMBIN (BOVINE) 5000 UNIT EPITAXIS KIT ONE (08:50)
[2017-04-08] MEDS ORDERED: BUPIVACAINE INJ/PF LIPOSOME/PF 266 MG/20 ML SDV ONE (08:50)
[2017-04-08] MEDS ORDERED: THROMBIN (BOVINE) TOPICAL 20000 UNIT VIAL ONE (08:50)
[2017-04-08] MEDS ORDERED: FENTANYL CITRATE INJ/PF 100 MCG/2 ML AMPUL ONE (09:31)
[2017-04-08] MEDS ORDERED: HYDROMORPHONE HCL INJ/PF 2 MG/ML AMPULE ONE (09:31)
[2017-04-08] MEDS ORDERED: TRANEXAMIC ACID INJ/PF 1,000 MG/10 ML SDV IV ONE ×3 (09:32→14:30)
[2017-04-08] MEDS ORDERED: MIDAZOLAM 2 MG/2 ML INJ ONE (09:32)
[2017-04-08] MEDS ORDERED: PROPOFOL INJ 200 MG/20 ML VIAL IV ONE (09:32)
[2017-04-08] MEDS ORDERED: ACETAMINOPHEN 100 ML IV ONE (09:32)
[2017-04-08] MEDS ORDERED: EPHEDRINE SULFATE INJ 50 MG/1 ML AMPULE ONE (09:32)
[2017-04-08] MEDS ORDERED: MEPERIDINE HCL/PF INJ 25 MG/1 ML DISP.SYRIN IV PRN (11:02)
[2017-04-08] MEDS ORDERED: FENTANYL CITRATE INJ/PF 100 MCG/2 ML AMPUL IV PRN ×3 (11:02)
[2017-04-08] MEDS ORDERED: DIPHENHYDRAMINE HCL 50 MG/ML VIAL IV PRN ×2 (11:02→11:30)
[2017-04-08] MEDS ORDERED: PROMETHAZINE HCL INJ 25 MG/1 ML VIAL IV PRN ×2 (11:02)
[2017-04-08] MEDS ORDERED: ONDANSETRON HCL INJ/PF 4 MG/2 ML SDV IV PRN ×3 (11:02→12:32)
--- NOTE | 2017-04-08 11:29 | Operative Report ---
Operative Report DATE OF SURGERY: 04/08/17 PREOPERATIVE DIAGNOSIS: r hip oa OPERATION: Right hip arthroplasty SURGEON: TARSHA CARVER ANESTHESIA: Spinal TISSUE REMOVED OR ALTERED: Hip arthroplasty right ESTIMATED BLOOD LOSS: 150 PROCEDURE: Implants used: Femur: Luca accolade 2 stem size 4 Acetabular shell: 52 mm PSL shell Liner: 36 mm flat cross-linked polyethylene liner Head: 36 millimeter head -5 neck The patient is placed in a left lateral decubitus position on the operating table. The right lower extremity and hindquarter is prepped and draped in a sterile fashion. A curvilinear incision was made over the greater trochanter a posterior approach the hip was taken. The femoral head is dislocated and the femoral neck transected using an oscillating saw. Attention was next turned to the acetabulum. Soft tissues cleared off the acetabulum using electrocautery. The acetabulum was then prepared using a series of hemispherical reamers until a 52 millimeters reamer is seated. Subsequently a 52 millimeters [place] PSL shell is impacted into position and secured with one screw. A standard flat 36 millimeters cross-link liner is impacted into the shell. Attention was next turned to the femur. Access is gained to the femoral canal using a box osteotome to the piriformis fossa. The femur is then prepared using a series of broaches until a number 4 broach is seated. A trial reduction was now performed using a 36 millimeters head with -5 neck. Preoperative leg length was recreated and is excellent anterior posterior stability. A decision was made to proceed with the above construct. All trial implants were removed. The wound is irrigated with pulsed lavage. A number 4 stem is impacted into the femoral canal. A trial reduction was again performed with a 36 mm head and a -5 neck. Findings as previously. The hip was dislocated one last time and the final chrome-cobalt head is impacted onto the trunnion. The hip was reduced. Wound is copiously irrigated with pulsed lavage. Sent closed in layers using interrupted Vicryl followed by jamel. A sterile dressing is applied and the patient's returned to recovery room in satisfactory patient.
[2017-04-08] MEDS ORDERED: ZOLPIDEM TARTRATE 5 MG TABLET PO PRN (11:30)
[2017-04-08] MEDS ORDERED: MAG HYDROX/AL HYDROX/SIMETH SUSP 30 ML UDCUP PO PRN (11:30)
[2017-04-08] MEDS ORDERED: MORPHINE SULFATE 10 MG/ML INJ IM PRN (11:30)
[2017-04-08] MEDS ORDERED: RINGERS SOLUTION,LACTATED 1,000 ML IV PRN (11:30)
[2017-04-08] MEDS ORDERED: MORPHINE SULFATE 10 MG/ML INJ IV PRN ×3 (11:30)
[2017-04-08] MEDS ORDERED: ACETAMINOPHEN 325 MG TABLET PO PRN (11:30)
[2017-04-08] MEDS ORDERED: ONDANSETRON 4 MG TAB.RAPDIS PO PRN ×2 (11:30→12:32)
[2017-04-08] MEDS: FENTANYL CITRATE INJ/PF 100 MCG/2 ML AMPUL ONE ×2 (11:50→12:00)
--- NOTE | 2017-04-08 12:06 | RADIOLOGY REPORT (SQ) ---
EXAM DESCRIPTION: PELVIS AP COMPLETED DATE/TIME: 04/08/2017 11:52 am REASON FOR STUDY: Post Op Long Cassette in PACU M16.11 UNILATERAL PRIMARY OSTEOARTHRITIS, RIGHT HI P COMPARISON: None. NUMBER OF VIEWS: One view TECHNIQUE: AP Pelvis LIMITATIONS: None. FINDINGS: MINERALIZATION: Normal. HIPS: Is a right hip arthroplasty good position. PELVIS AND SACRUM: No acute fracture or dislocation. No worrisome bone lesions. PUBIS AND ISCHIUM: No acute fracture. LOWER LUMBAR SPINE: Degenerative disc changes are present. SOFT TISSUES: No findings. OTHER: No other significant finding. IMPRESSION: 1. Right hip arthroplasty. 2. Lumbar degenerative disc changes. TECHNICAL DOCUMENTATION: JOB ID: [id number] [employer]- All Rights Reserved
[2017-04-08] MEDS: OXYCODONE HCL IR 5 MG TABLET PO PRN ×2 (14:46→19:29)
[2017-04-08] MEDS ORDERED: TRAZODONE HCL 50 MG TABLET PO SCH (18:00)
[2017-04-08] MEDS ORDERED: (PENDING PHARMACY ID) (Trazodone Hcl [Trazodone Hcl] 200 MG) PO SCH (18:00)
[2017-04-08] MEDS: IBUPROFEN 800 MG in NORMAL SALINE 250 ML IV SCH (18:38)
[2017-04-08] MEDS: SENNOSIDES/DOCUSATE 8.6-50 MG 1 EACH TABLET PO SCH (18:38)
[2017-04-08] MEDS: DULOXETINE HCL 30 MG CAPSULE.DR PO SCH (21:49)
[2017-04-08] MEDS: OXYCODONE HCL SR 10 MG TABLET PO SCH (21:49)
[2017-04-08] MEDS: TRAZODONE HCL 50 MG TABLET PO SCH (21:50)
[2017-04-08] MEDS: RIVAROXABAN 10 MG TABLET PO SCH (21:52)
[2017-04-08] MEDS ORDERED: KETOROLAC TROMETHAMINE INJ/PF 30 MG/1 ML SDV IV SCH (22:00)
[2017-04-08] MEDS ORDERED: VANCOMYCIN HCL 1,000 MG in DEXTROSE 5%-WATER 250 ML IV ONE (23:30)
[2017-04-09] MEDS: IBUPROFEN 800 MG in NORMAL SALINE 250 ML IV SCH ×3 (01:28→17:50)
[2017-04-09] MEDS: OXYCODONE HCL IR 5 MG TABLET PO PRN ×3 (02:07→23:58)
[2017-04-09] MEDS: KETOROLAC TROMETHAMINE INJ/PF 30 MG/1 ML SDV IV PRN ×2 (03:58→20:32)
[2017-04-09] MEDS: LANSOPRAZOLE 30 MG TAB.RAP.DR PO SCH (05:40)
[2017-04-09 06:12] LABS: HEMATOCRIT 24.6 % (36.0-47.0); HGB HCT DIFFERENCE 0.9; MEAN CORPUSCULAR HGB CONC 34.6 g/dL (32.0-36.0); MEAN CORPUSCULAR VOLUME 90 fl (80-97); RED BLOOD COUNT 2.74 10^6/uL (3.72-5.28); RED CELL DISTRIBUTION WIDTH 14.8 % (11.5-14.0); WHITE BLOOD COUNT 11.5 10^3/uL (4.0-10.5)
[2017-04-09 06:18] LABS: HEMOGLOBIN 8.5 g/dL (12.0-15.5)
[2017-04-09 06:22] LABS: ANION GAP 11 (5-19); BLOOD UREA NITROGEN 21 mg/dL (7-20); CALCIUM 8.6 mg/dL (8.4-10.2); CARBON DIOXIDE 21 mmol/L (22-30); CHLORIDE 103 mmol/L (98-107); CREATININE RESULT 1.09 mg/dL (0.52-1.25); GLUCOSE 117 mg/dL (75-110); POTASSIUM 3.3 mmol/L (3.6-5.0); SODIUM 134.7 mmol/L (137-145)
--- NOTE | 2017-04-09 07:27 | PDOC PROGRESS REPORT ---
Subjective Progress Note for:: 04/09/17 Subjective:: Patient is a 66 yo female s/p total right hip arthroplasty.Patient was awake and alert in bed this morning. Patient states she was doing well yesterday evening, until around 5:00 PM when her pain significantly increased. patient's pain was bothering her throughout the night bringing her to tears at some point. Patient worked with nursing to control her pain and is feeling much better this morning. Patient notes that her pain was controlled with The lower and Toradol. Patient is feeling much better this morning we will continue to work with physical therapy to improve strength range of motion and mobility. Physical Exam Vital Signs: Temp Pulse Resp BP Pulse Ox 37.1 C 73 16 125/75 97 04/09/17 00:10 04/09/17 00:10 04/09/17 00:10 04/09/17 00:10 04/09/17 00:10 Intake & Output 04/08/17 04/09/17 04/10/17 06:59 06:59 06:59 Intake Total 6051 Output Total 4400 Balance 1651 Weight 69.4 kg General appearance: PRESENT: no acute distress, well-developed, well-nourished Head exam: PRESENT: atraumatic, normocephalic Additional comments: Patient's surgical site is intact and healing well. There is no evidence of drainage erythema induration or ecchymosis. There is no evidence of purulent or serosanguineous drainage. Patient is sedentary in bed this morning however was able to walk 100 feet with physical therapy yesterday. Patient exhibits appropriate range of motion for this stage in healing process and distal neurovascular exam is intact. Musculoskeletal exam: PRESENT: ambulatory Neurological exam: PRESENT: alert, awake, oriented to person, oriented to place , oriented to time, oriented to situation, CN II-XII grossly intact. ABSENT: motor sensory deficit Psychiatric exam: PRESENT: appropriate affect, normal mood. ABSENT: homicidal ideation, suicidal ideation Skin exam: PRESENT: dry, intact, warm. ABSENT: cyanosis, rash Results Laboratory Results: 04/09/17 05:45 04/09/17 05:45 04/08/17 04/08/17 04/09/17 08:45 08:45 05:45 WBC 11.5 H RBC 2.74 L Hgb 8.5 L D Hct 24.6 L MCV 90 MCH 31.0 MCHC 34.6 RDW 14.8 H Plt Count 220 Sodium Potassium 3.9 Chloride Carbon Dioxide Anion Gap BUN Creatinine Est GFR ( Amer) Est GFR (Non-Af Amer) Glucose Calcium Blood Type O POSITIVE Antibody Screen NEGATIVE 04/09/17 05:45 WBC RBC Hgb Hct MCV MCH MCHC RDW Plt Count Sodium 134.7 L Potassium 3.3 L Chloride 103 Carbon Dioxide 21 L Anion Gap 11 BUN 21 H Creatinine 1.09 Est GFR ( Amer) > 60 Est GFR (Non-Af Amer) 50 L Glucose 117 H Calcium 8.6 Blood Type Antibody Screen Impressions: Pelvis X-Ray 04/08/17 11:31 IMPRESSION: 1. Right hip arthroplasty. 2. Lumbar degenerative disc changes. Assessment & Plan - Diagnosis (1) Arthritis of right hip Is this a current diagnosis for this admission?: Yes
[2017-04-09] MEDS ORDERED: (PENDING PHARMACY ID) (Potassium Chloride [Potassium Chloride] 10 MEQ) PO SCH (08:00)
[2017-04-09] MEDS ORDERED: HCTZ PO SCH (08:00)
[2017-04-09] MEDS ORDERED: BISOPROLOL FUMARATE PO SCH (08:00)
[2017-04-09] MEDS: PRENATAL VITAMIN W-O CA NO5/FE FUMARATE/FA CAPSULE PO SCH (09:38)
[2017-04-09] MEDS: SENNOSIDES/DOCUSATE 8.6-50 MG 1 EACH TABLET PO SCH ×2 (09:38→17:50)
[2017-04-09] MEDS: POTASSIUM CHLORIDE 10 MEQ TABLET.SA PO SCH (09:39)
[2017-04-09] MEDS: TRIAMTERENE/HYDROCHLOROTHIAZIDE 37.5-25 MG TABLET PO SCH (09:39)
[2017-04-09] MEDS: OXYCODONE HCL SR 10 MG TABLET PO SCH ×2 (09:40→22:05)
[2017-04-09] MEDS ORDERED: NORMAL SALINE 10 ML SDV (AFTER EACH USE) IV PRN (11:11)
[2017-04-09] MEDS ORDERED: NORMAL SALINE 10 ML SDV (SCHEDULED) IV SCH (22:00)
[2017-04-09] MEDS: TRAZODONE HCL 50 MG TABLET PO SCH (22:04)
[2017-04-09] MEDS: RIVAROXABAN 10 MG TABLET PO SCH (22:05)
[2017-04-09] MEDS: DULOXETINE HCL 30 MG CAPSULE.DR PO SCH (22:05)
[2017-04-10] MEDS: IBUPROFEN 800 MG in NORMAL SALINE 250 ML IV SCH (02:37)
[2017-04-10] MEDS: LANSOPRAZOLE 30 MG TAB.RAP.DR PO SCH (05:26)
[2017-04-10] MEDS: OXYCODONE HCL IR 5 MG TABLET PO PRN (05:26)
[2017-04-10 08:15] LABS: HEMATOCRIT 22.6 % (36.0-47.0); HGB HCT DIFFERENCE 1.1; MEAN CORPUSCULAR HGB CONC 34.9 g/dL (32.0-36.0); MEAN CORPUSCULAR VOLUME 89 fl (80-97); RED BLOOD COUNT 2.54 10^6/uL (3.72-5.28); RED CELL DISTRIBUTION WIDTH 15.6 % (11.5-14.0); WHITE BLOOD COUNT 10.2 10^3/uL (4.0-10.5)
[2017-04-10 09:01] VITALS: BP 107/55
[2017-04-10] MEDS: TRIAMTERENE/HYDROCHLOROTHIAZIDE 37.5-25 MG TABLET PO SCH (09:44)
[2017-04-10] MEDS: POTASSIUM CHLORIDE 10 MEQ TABLET.SA PO SCH (09:44)
[2017-04-10] MEDS: OXYCODONE HCL SR 10 MG TABLET PO SCH (09:45)
[2017-04-10] MEDS: SENNOSIDES/DOCUSATE 8.6-50 MG 1 EACH TABLET PO SCH (09:45)
[2017-04-10] MEDS: PRENATAL VITAMIN W-O CA NO5/FE FUMARATE/FA CAPSULE PO SCH (09:45)
[2017-04-10 10:01] LABS: HEMOGLOBIN 7.9 g/dL (12.0-15.5)
--- NOTE | 2017-04-10 10:02 | PDOC DISCHARGE SUMMARY ---
Discharge Summary (SDC) - Discharge Final Diagnosis: Right hip arthritis Date of Surgery: 04/08/17 Discharge Date: 04/10/17 Condition: Good Forms: Discharge POC-Adult Treatment or Instructions: Please keep ambrocio wound dressing clean and dry. Do not submerge underwater. This dressing will be removed 7 days postoperatively by home health nursing and replaced. Please continue to work with his physical therapy to improve function and mobility. You will follow-up with our office at [facility] for surgery 2 weeks postoperatively to have your jamel removed. Referrals: [facility] [Outside] - 04/11/17 TARSHA CARVER MD [ACTIVE STAFF] - 04/23/17 1:15 pm Discharge Diet: Regular Discharge Activity: Activity As Tolerated, Balance Activity w/Rest, No Lifting/ Push/Pulling, Slowly Increase Activity, Other - Continue to work with physical therapy on improving strength and mobility of your right hip. Home Care Assistance: Home Health Activities Provided by Home Health Agency: Physical Therapy Adaptive Devices on Discharge: Bedside Commode Report the Following to Your Physician Immediately: Increase in Pain, Fever over 101 Degrees, Redness, Swelling, Warmth, Numbness, Tingling Sensation
== END 2017-04-10 10:27 | disposition home health service (06) | DRG 470 ==
LOC: INOR 08:08 → 4S 12:31
PROVIDERS: ADMIT Orthopaedic Surgery; ATTEND Orthopaedic Surgery
PROC: 5A09457 Assistance with Respiratory Ventilation, 24-96 Consecutive Hours, Continuous Positive Airway Pressure (ICD-10-PCS; 2017-04-08)
PROC: 0SR902A Replacement of Right Hip Joint with Metal on Polyethylene Synthetic Substitute, Uncemented, Open Approach (ICD-10-PCS; principal; 2017-04-08 10:15)
DX: M16.11 Unilateral primary osteoarthritis, right hip (principal); I10 Essential (primary) hypertension; G47.30 Sleep apnea, unspecified; K58.9 Irritable bowel syndrome, unspecified; F32.9 Major depressive disorder, single episode, unspecified; F43.10 Post-traumatic stress disorder, unspecified; G43.909 Migraine, unspecified, not intractable, without status migrainosus; G47.00 Insomnia, unspecified; M51.36 Other intervertebral disc degeneration, lumbar region; Z98.49 Cataract extraction status, unspecified eye; Z86.718 Personal history of other venous thrombosis and embolism; Z90.49 Acquired absence of other specified parts of digestive tract; Z90.710 Acquired absence of both cervix and uterus; Z96.652 Presence of left artificial knee joint; Z79.82 Long term (current) use of aspirin; Z79.899 Other long term (current) drug therapy
CPT/HCPCS: 01214; 36415; 72170; 80048; 80053; 82306; 82607; 84132; 84439; 84443; 85025; 85027; 85652; 86850; 86900; 86901; 88304; 88311; 94660; 94799; C1713; C1780; C9290; G8978-GP; G8979-GP; G8987-GO; G8988-GO; J0131; J0330; J0690; J1100; J1170; J1200; J1642; J1741; J1885; J2250; J2405; J2704; J2765; J3010; J3370; J3490; J7050; J7060; J7120

== ENCOUNTER 2017-05-27 06:18 | Inpatient (IN) | payer MEDICARE, OTHER ==
[~2017-05-27 06:18] MED LIST changes: -BUPIVACAINE INJ/PF LIPOSOME/PF 266 MG/20 ML SDV IJ PRN; +BUPIVACAINE INJ/PF LIPOSOME/PF 266 MG/20 ML SDV INJ PRN; +CEFAZOLIN 1 GM/D5W RTU 1 GM/50 ML RTUPB IV PRN; -CEFAZOLIN INJ 1 GM VIAL IV PRN; -DEXAMETHASONE SOD PHOSPHATE INJ 4 MG/1 ML VIAL ONE; -GLYCOPYRROLATE INJ 0.4 MG/2 ML VIAL ONE; +IBUPROFEN 800 MG in NORMAL SALINE 250 ML IV PRN; -IBUPROFEN 800 MG/NS 250 ML IV PRN; -LACTATED RINGERS 1000 ML IV PRN; -LIDOCAINE 0.5% INJ-PF (5 MG/ML) 50 ML SDV SUBCUT PRN; -LIDOCAINE 2% INJ-PF (20 MG/ML) 10 ML AMPUL ONE; -METOCLOPRAMIDE HCL INJ/PF 10 MG/2 ML SDV ONE; -ONDANSETRON HCL INJ/PF 4 MG/2 ML SDV ONE; -SCOPOLAMINE HYDROBROMIDE 1.5 MG PATCH.TD72 TOP PRN; -SUCCINYLCHOLINE CHLORIDE INJ 200 MG/10 ML VIAL ONE
--- NOTE | 2017-05-27 07:10 | RADIOLOGY REPORT (SQ) ---
EXAM DESCRIPTION: CHEST SINGLE VIEW COMPLETED DATE/TIME: 05/27/2017 7:01 am REASON FOR STUDY: pre op COMPARISON: Chest x-ray 03/08/2017, CT chest 12/27/2016. EXAM PARAMETERS: NUMBER OF VIEWS: One view. TECHNIQUE: Single frontal radiographic view of the chest acquired. RADIATION DOSE: NA LIMITATIONS: None. FINDINGS: LUNGS AND PLEURA: No consolidation, pneumothorax or pleural effusion. MEDIASTINUM AND HILAR STRUCTURES: No masses. Contour normal. HEART AND VASCULAR STRUCTURES: Heart normal in size. Normal vasculature. BONES: No acute findings. HARDWARE: None in the chest. IMPRESSION: No acute radiographic finding in the chest. TECHNICAL DOCUMENTATION: JOB ID: [id number]
[2017-05-27 07:12] VITALS: BP 107/71
[2017-05-27 08:08] LABS: HEMATOCRIT 32.6 % (36.0-47.0); HEMOGLOBIN 11.5 g/dL (12.0-15.5); HGB HCT DIFFERENCE 1.9; MEAN CORPUSCULAR HEMOGLOBIN 30.5 pg (27.0-33.4); MEAN CORPUSCULAR HGB CONC 35.3 g/dL (32.0-36.0); MEAN CORPUSCULAR VOLUME 86 fl (80-97); RED BLOOD COUNT 3.78 10^6/uL (3.72-5.28); RED CELL DISTRIBUTION WIDTH 15.4 % (11.5-14.0); WHITE BLOOD COUNT 10.1 10^3/uL (4.0-10.5)
[2017-05-27 08:42] LABS: ERYTHROCYTE SEDIMENTATION RATE 38 mm/hr (0-30)
--- NOTE | 2017-05-27 09:57 | RADIOLOGY REPORT (SQ) ---
EXAM DESCRIPTION: PICC INSERTION; U/S GUIDE FOR VASCULAR ACCESS; FLUORO/CV PLACEMENT COMPLETED DATE/TIME: 05/27/2017 9:04 am REASON FOR STUDY: IV ACCESS, MANAGEMENT OF VASULAR DEVICE; IV ACCESS, MANAGEMENT OF VASCULAR ACCESS DEVICE T85.698D [facility] COMPL OF INTERNAL PROSTH DEV/GRFT, SUBS COMPARISON: None. FLUOROSCOPY TIME: 4.0 second 2 images saved to PACS. TECHNIQUE: Fluoroscopic and ultrasound guided PICC placement. LIMITATIONS: None. PROCEDURE: After written consent and assessment were obtained, the patient was brought into the fluo roscopy room and place supine on the table. Ultrasound was used on the patient's right arm for PICC access. The right arm was prepped and draped in a sterile fashion along with the ultrasound probe. Th e entry site was anesthetized with 1% lidocaine. A 21 gauge 7 cm needle was advanced through the skin and into the basilic vein under live ultrasound guidance. An ultrasound image was saved to PACS con firming access site. A .018 guide wire was then inserted through the needle and into the venous syst em. The needle was the removed and an 11 blade scalpel was used to make a 1cm skin incision. A 5 fr peel-away sheath was advanced over the wire and into the venous system. A measurement was then made u sing the existing wire and live fluoroscopic guidance. The wire was then removed and the trimmed. The PICC was advanced through the peel-away sheath and into the venous system. The peel-away sheath was removed and the catheter was adhered to the patients arm with a stat lock. The catheter was then aspi rated and flushed and a sterile bandage was placed over the access site. A fluoroscopic spot image w as saved to PACS confirming the catheter tip within the superior vena cava. IMPRESSION: SUCCESSFUL PLACEMENT OF A 5 FR DUAL LUMEN 30 CM PICC IN THE right basilic VEIN. COMMENT: Patient medication list reviewed: Yes- Quality ID# 130:Eligible professional attests to doc umenting in the medical record they obtained, updated, or reviewed the patient's current medications. . Quality ID 145: Final reports for procedures using fluoroscopy that document radiation exposure valerie nhi, or exposure time and number of fluorographic images (if radiation exposure indices are not avail able) Quality ID #76: The patient was prepped and draped using maximum sterile barrier technique including cap, mask, sterile gown, sterile gloves, a large sterile sheet, hand hygiene, and 2% Chlorhexidine fo r cutaneous antisepsis. When ultrasound is used, sterile ultrasound techniques are followed requiring sterile gel and sterile probes. TECHNICAL DOCUMENTATION: JOB ID: [id number] [employer]- All Rights Reserved
[2017-05-27] MEDS ORDERED: FENTANYL CITRATE INJ/PF 100 MCG/2 ML AMPUL ONE ×3 (10:52→11:35)
[2017-05-27] MEDS ORDERED: MIDAZOLAM 2 MG/2 ML INJ ONE (10:52)
[2017-05-27] MEDS ORDERED: ONDANSETRON HCL INJ/PF 4 MG/2 ML SDV ONE ×2 (10:53→11:09)
[2017-05-27] MEDS ORDERED: DEXAMETHASONE SOD PHOSPHATE INJ 4 MG/1 ML VIAL ONE ×2 (10:53→11:09)
[2017-05-27] MEDS ORDERED: PROPOFOL INJ 200 MG/20 ML VIAL IV ONE (10:53)
[2017-05-27] MEDS ORDERED: TRANEXAMIC ACID INJ/PF 1,000 MG/10 ML SDV IV ONE (10:53)
[2017-05-27] MEDS ORDERED: THROMBIN (BOVINE) 5000 UNIT EPITAXIS KIT ONE (10:58)
[2017-05-27] MEDS ORDERED: THROMBIN (BOVINE) TOPICAL 20000 UNIT VIAL ONE (10:58)
[2017-05-27] MEDS ORDERED: BUPIVACAINE INJ/PF LIPOSOME/PF 266 MG/20 ML SDV ONE (10:59)
[2017-05-27] MEDS ORDERED: SUCCINYLCHOLINE CHLORIDE INJ 200 MG/10 ML VIAL ONE (11:09)
[2017-05-27] MEDS ORDERED: LIDOCAINE 2% INJ-PF (20 MG/ML) 10 ML AMPUL ONE (11:09)
[2017-05-27] MEDS ORDERED: PHENYLEPHRINE HCL INJ/PF 10 MG/1 ML SDV ONE (11:09)
[2017-05-27] MEDS ORDERED: METOCLOPRAMIDE HCL INJ/PF 10 MG/2 ML SDV ONE (11:09)
[2017-05-27] MEDS ORDERED: HYDROMORPHONE HCL INJ/PF 2 MG/ML AMPULE ONE (11:36)
[2017-05-27] MEDS ORDERED: NORMAL SALINE 10 ML SDV (AFTER EACH USE) IV PRN (12:00)
--- NOTE | 2017-05-27 14:32 | EKG REPORT ---
SEVERITY:- ABNORMAL ECG - SINUS RHYTHM NONSPECIFIC T ABNORMALITIES, ANT-LAT LEADS : Confirmed by: Ginette Beltran MD 27-May-2017 14:31:26
[2017-05-27] MEDS ORDERED: NORMAL SALINE 10 ML SDV (SCHEDULED) IV SCH (22:00)
[2017-05-29] MEDS ORDERED: FENTANYL CITRATE INJ/PF 100 MCG/2 ML AMPUL ONE (10:40)
--- NOTE | 2017-06-03 11:08 | PDOC H&P ---
History of Present Illness Admission Date/PCP: 05/27/17 06:18 ED PHILLIPS DO Patient complains of: Right hip pain History of Present Illness: JAY NESBITT is a 67 year old female status post right hip arthroplasty with persistent pain and a shift in the acetabular component apparent on x-ray. Past Medical History Cardiac Medical History: Reports: Hypertension Denies: Atrial Fibrillation, Congestive Heart Failure, Coronary Artery Disease, Myocardial Infarction, Hyperlipidema, Peripheral Vascular Disease, Pulmonary Embolism, Heart Murmur Pulmonary Medical History: Reports: Pneumonia, Sleep Apnea - USES CPAP Denies: Asthma, Bronchitis, Chronic Obstructive Pulmonary Disease (COPD), Respiratory Failure, Tuberculosis Neurological Medical History: Reports: Migraine Denies: Seizures Endocrine Medical History: Renal/ Medical History: Denies: End Stage Renal Disease Malignancy Medical History: Denies: Breast Cancer, Cervical Cancer, Leukemia, Lung Cancer, Ovarian Cancer GI Medical History: Denies: Crohn's Disease, Gastroesophageal Reflux Disease, Hiatal Hernia Musculoskeltal Medical History: Reports: Arthritis - JESSICA. KNEES, HIP AND FINGERS Denies: Fibromyalgia Psychiatric Medical History: Reports: Depression, Post Traumatic Stress Disorder Denies: Bipolar Disorder, Dementia Hematology: Reports: Anemia - Slight Denies: Hemophilia, Sickle Cell Disease Infectious Medical History: Denies: HIV Past Surgical History Past Surgical History: Reports: Appendectomy, Cholecystectomy, Hysterectomy, Orthopedic Surgery - Right hip arthroplasty approximately 6 weeks ago Denies: Amputation, Section, Colostomy, Coronary Artery Bypass Graft , Gastric Bypass Surgery, Herniorrhaphy, Mastectomy, Pacemaker, Tonsillectomy, Tubal Ligation Social History Smoking Status: Former Smoker Frequency of Alcohol Use: Occasional Hx Recreational Drug Use: No Drugs: None Hx Prescription Drug Abuse: No - Advance Directive Resuscitation Status: Do Not Resuscitate Family History Family History: None - adopted Parental Family History Reviewed: No Children Family History Reviewed: No Sibling(s) Family History Reviewed.: No Medication/Allergy Home Medications: Duloxetine HCl [Cymbalta] 60 mg PO QHS 05/29/17 Potassium Chloride [Klor-Con 10 Meq Tablet.sa] 10 meq PO DAILY 05/29/17 Trazodone HCl [Desyrel] 200 mg PO QHS 05/29/17 Triamterene/Hydrochlorothiazid [Triamterene-Hctz 37.5-25 mg Cp] 1 cap PO DAILY 05/29/17 Allergies/Adverse Reactions: Iodinated Contrast- Oral and IV Dye [IV Dye, Iodine Containing] Allergy (Severe , Verified 05/29/17 07:57) Hives levofloxacin [From Levaquin] Allergy (Severe, Verified 05/29/17 07:57) Hives morphine [Morphine] Allergy (Severe, Verified 05/29/17 07:57) Anaphylaxis methotrexate [Methotrexate] Adverse Reaction (Severe, Verified 05/29/17 07:57) Anaphylaxis Review of Systems All systems: as per H Physical Exam Vital Signs: Temp Pulse Resp BP Pulse Ox 36.7 C 58 L 16 107/71 98 05/27/17 07:37 05/27/17 07:37 05/27/17 07:37 05/27/17 07:37 05/27/17 07:37 General appearance: PRESENT: mild distress Head exam: PRESENT: normocephalic Eye exam: PRESENT: EOMI Pulses: PRESENT: +1 pedal pulses bilateral Vascular exam: PRESENT: normal capillary refill GI/Abdominal exam: PRESENT: soft Rectal exam: PRESENT: deferred Musculoskeletal exam: PRESENT: other - Right hip wound well-healed. Leg lengths equal. Distal neurovascular examination is intact. Neurological exam: PRESENT: alert, awake, oriented to person, oriented to place , oriented to time, oriented to situation. ABSENT: motor sensory deficit Psychiatric exam: PRESENT: appropriate affect, normal mood. ABSENT: homicidal ideation, suicidal ideation Results Laboratory Results: 05/27/17 07:45 05/27/17 11:00 Impressions: Chest X-Ray 05/27/17 00:00 IMPRESSION: No acute radiographic finding in the chest. Guidance Fluoroscopy 05/27/17 00:00 IMPRESSION: SUCCESSFUL PLACEMENT OF A 5 FR DUAL LUMEN 30 CM PICC IN THE right basilic VEIN. Interventional Vascular Procedure 05/27/17 00:00 IMPRESSION: SUCCESSFUL PLACEMENT OF A 5 FR DUAL LUMEN 30 CM PICC IN THE right basilic VEIN. PICC Line Insertion 05/27/17 00:00 IMPRESSION: SUCCESSFUL PLACEMENT OF A 5 FR DUAL LUMEN 30 CM PICC IN THE right basilic VEIN. Status: Imported from PACS Assessment & Plan - Diagnosis (1) Mechanical failure of prosthetic joint Qualifiers: Is this a current diagnosis for this admission?: Yes Plan: Patient is admitted for elective revision of the right acetabular component - Time Time Spent: 50 to 70 Minutes
== END 2017-05-27 15:43 | disposition home health service (06) | DRG 561 ==
LOC: INOR 06:18
PROVIDERS: ADMIT Orthopaedic Surgery; ATTEND Orthopaedic Surgery
PROC: 02HV33Z Insertion of Infusion Device into Superior Vena Cava, Percutaneous Approach (ICD-10-PCS; principal; 2017-05-27)
PROC: B518ZZA Fluoroscopy of Superior Vena Cava, Guidance (ICD-10-PCS; 2017-05-27)
PROC: B548ZZA Ultrasonography of Superior Vena Cava, Guidance (ICD-10-PCS; 2017-05-27)
DX: T84.090A Other mechanical complication of internal right hip prosthesis, initial encounter (principal); E87.6 Hypokalemia; Z53.09 Procedure and treatment not carried out because of other contraindication; Z66 Do not resuscitate; I10 Essential (primary) hypertension; G47.30 Sleep apnea, unspecified; M19.90 Unspecified osteoarthritis, unspecified site; F43.10 Post-traumatic stress disorder, unspecified; Z87.891 Personal history of nicotine dependence
CPT/HCPCS: 36415; 36569; 71010; 76937; 77001; 84132; 85027; 85652; 86850; 86900; 86901; 93005; 93010; C9290; J0330; J0690; J1100; J1170; J1642; J1741; J2250; J2370; J2405; J2704; J2765; J3010; J3370; J3490; J7050; J7060

== ENCOUNTER 2017-05-29 07:06 | Inpatient (IN) | payer MEDICARE, OTHER ==
[~2017-05-29 07:06] MED LIST changes: -BUPIVACAINE INJ/PF LIPOSOME/PF 266 MG/20 ML SDV INJ PRN; -CEFAZOLIN 1 GM/D5W RTU 1 GM/50 ML RTUPB IV PRN; +CEFAZOLIN INJ 1 GM VIAL IV PRN; +LACTATED RINGERS 1000 ML IV PRN
[2017-05-29] MEDS ORDERED: THROMBIN (BOVINE) TOPICAL 20000 UNIT VIAL ONE (08:09)
[2017-05-29] MEDS ORDERED: BUPIVACAINE INJ/PF LIPOSOME/PF 266 MG/20 ML SDV ONE (08:09)
[2017-05-29] MEDS ORDERED: THROMBIN (BOVINE) 5000 UNIT EPITAXIS KIT ONE (08:09)
[2017-05-29] MEDS ORDERED: IBUPROFEN INJ 800 MG/8 ML VIAL IV ONE (09:11)
[2017-05-29] MEDS ORDERED: PROPOFOL INJ 200 MG/20 ML VIAL IV ONE (09:11)
[2017-05-29] MEDS ORDERED: MIDAZOLAM 2 MG/2 ML INJ ONE (09:11)
[2017-05-29] MEDS ORDERED: HYDROMORPHONE HCL INJ/PF 2 MG/ML AMPULE ONE (09:12)
[2017-05-29] MEDS ORDERED: TRANEXAMIC ACID INJ/PF 1,000 MG/10 ML SDV IV ONE (09:18)
[2017-05-29] MEDS ORDERED: EPHEDRINE SULFATE INJ 50 MG/1 ML AMPULE ONE (09:45)
[2017-05-29] MEDS ORDERED: PROMETHAZINE HCL INJ 25 MG/1 ML VIAL IV PRN ×2 (10:00)
[2017-05-29] MEDS ORDERED: ONDANSETRON HCL INJ/PF 4 MG/2 ML SDV IV PRN (10:00)
[2017-05-29] MEDS ORDERED: DIPHENHYDRAMINE HCL 50 MG/ML VIAL IV PRN ×2 (10:00→10:24)
[2017-05-29] MEDS ORDERED: MEPERIDINE HCL/PF INJ 25 MG/1 ML DISP.SYRIN IV PRN (10:00)
[2017-05-29] MEDS ORDERED: FENTANYL CITRATE INJ/PF 100 MCG/2 ML AMPUL IV PRN ×3 (10:00)
--- NOTE | 2017-05-29 10:23 | Operative Report ---
Operative Report DATE OF SURGERY: 05/29/17 PREOPERATIVE DIAGNOSIS: Failed right acetabular component OPERATION: Revision right hip arthroplasty. Sciatic neural lysis SURGEON: TARSHA CARVER ANESTHESIA: GA TISSUE REMOVED OR ALTERED: Cultures to microbiology, tissue to pathology, hardware to pathology ESTIMATED BLOOD LOSS: 150 PROCEDURE: With the patient in a left lateral decubitus position and after table the right lower extremity hunker prepped and draped in sterile fashion. A curvilinear incision made over the greater trochanter line was previous surgical approach. Posterior approach the hip was taken. Upon entering the tissue deep to the iliotibial band cultures are sent for culture and sensitivity. The underlying hip is easily visualized. Is dislocated. The femoral head disimpacted uneventfully. The femur was retracted anteriorly exposing underlying acetabulum. The acetabular liner was easily removed using osteotome. The underlying screw was removed using a screwdriver. The acetabular component was then removed using Destiney clamp. The acetabulum deepened with a 52 mm reamer. Subsequently 54 mm multihole revision acetabular component is impacted into position. Secure without screws. Regardless 3 screws were placed. 36 mm Vazquez flat cross -link Poliquin liner was impacted into position. A 36 mm -5 head is impacted onto the trunnion. The hip was reduced. There is jared care with pulse lavage. Is closed in layers using interrupted Vicryl followed by jamel. Sterile dressings applied and the patient returned to PACU in satisfactory condition.
[2017-05-29] MEDS ORDERED: ONDANSETRON 4 MG TAB.RAPDIS PO PRN (10:24)
[2017-05-29] MEDS ORDERED: ACETAMINOPHEN 325 MG TABLET PO PRN (10:24)
[2017-05-29] MEDS ORDERED: MAG HYDROX/AL HYDROX/SIMETH SUSP 30 ML UDCUP PO PRN (10:24)
[2017-05-29] MEDS ORDERED: RINGERS SOLUTION,LACTATED 1,000 ML IV PRN (10:24)
[2017-05-29] MEDS ORDERED: ZOLPIDEM TARTRATE 5 MG TABLET PO PRN (10:24)
[2017-05-29] MEDS: FENTANYL CITRATE INJ/PF 100 MCG/2 ML AMPUL ONE ×3 (10:40→10:57)
--- NOTE | 2017-05-29 11:30 | RADIOLOGY REPORT (SQ) ---
EXAM DESCRIPTION: PELVIS AP COMPLETED DATE/TIME: 05/29/2017 11:08 am REASON FOR STUDY: Post Op Long Cassette in PACU T85.698D [facility] COMPL OF INTERNAL PROSTH DEV/Diaz THAKUR UBS COMPARISON: 04/08/2017 NUMBER OF VIEWS: One view TECHNIQUE: AP Pelvis LIMITATIONS: None. FINDINGS: MINERALIZATION: Normal. HIPS: A right hip arthroplasty is present good position PELVIS AND SACRUM: No acute fracture or dislocation. No worrisome bone lesions. PUBIS AND ISCHIUM: No acute fracture. LOWER LUMBAR SPINE: No significant findings as visualized. SOFT TISSUES: Skin jamel overlie the right hip. OTHER: No other significant finding. IMPRESSION: Right hip arthroplasty. TECHNICAL DOCUMENTATION: JOB ID: [id number] [employer]- All Rights Reserved
[2017-05-29] MEDS ORDERED: NORMAL SALINE 10 ML SDV (AFTER EACH USE) IV PRN (12:15)
[2017-05-29] MEDS: OXYCODONE HCL IR 5 MG TABLET PO PRN ×2 (13:55→19:49)
[2017-05-29] MEDS ORDERED: ACETAMINOPHEN 100 ML IV ONE (16:30)
[2017-05-29] MEDS: SENNOSIDES/DOCUSATE 8.6-50 MG 1 EACH TABLET PO SCH (17:45)
[2017-05-29] MEDS: ONDANSETRON HCL INJ/PF 4 MG/2 ML SDV IV PRN (17:46)
[2017-05-29] MEDS: IBUPROFEN 800 MG in NORMAL SALINE 250 ML IV SCH (17:46)
[2017-05-29] MEDS: HYDROMORPHONE HCL INJ/PF 2 MG/ML AMPULE IV PRN ×2 (17:46→22:44)
[2017-05-29] MEDS: OXYCODONE HCL SR 10 MG TABLET PO SCH (21:07)
[2017-05-29] MEDS ORDERED: (PENDING PHARMACY ID) (Trazodone Hcl [Desyrel] 200 MG) PO SCH (22:00)
[2017-05-29] MEDS ORDERED: BUPROPION HCL 75 MG TABLET PO SCH (22:00)
[2017-05-29] MEDS: DULOXETINE HCL 30 MG CAPSULE.DR PO SCH (22:27)
[2017-05-29] MEDS: TRAZODONE HCL 50 MG TABLET PO SCH (22:28)
[2017-05-29] MEDS ORDERED: VANCOMYCIN HCL 1,000 MG in DEXTROSE 5%-WATER 250 ML IV ONE (22:30)
[2017-05-29] MEDS: NORMAL SALINE 10 ML SDV (SCHEDULED) IV SCH (22:44)
[2017-05-29] MEDS: PREGABALIN 75 MG CAPSULE PO SCH (22:48)
[2017-05-29] MEDS: RIVAROXABAN 10 MG TABLET PO SCH (22:48)
[2017-05-30] MEDS: IBUPROFEN 800 MG in NORMAL SALINE 250 ML IV SCH ×3 (01:19→18:07)
[2017-05-30] MEDS: ONDANSETRON HCL INJ/PF 4 MG/2 ML SDV IV PRN ×2 (03:13→09:23)
[2017-05-30] MEDS: HYDROMORPHONE HCL INJ/PF 2 MG/ML AMPULE IV PRN ×2 (03:13→09:23)
[2017-05-30] MEDS: LANSOPRAZOLE 30 MG TAB.RAP.DR PO SCH (05:17)
[2017-05-30] MEDS: OXYCODONE HCL IR 5 MG TABLET PO PRN ×3 (05:17→19:37)
[2017-05-30 05:57] LABS: HEMATOCRIT 21.6 % (36.0-47.0); HGB HCT DIFFERENCE 1.2; MEAN CORPUSCULAR HEMOGLOBIN 30.6 pg (27.0-33.4); MEAN CORPUSCULAR VOLUME 88 fl (80-97); RED BLOOD COUNT 2.47 10^6/uL (3.72-5.28); RED CELL DISTRIBUTION WIDTH 15.4 % (11.5-14.0); WHITE BLOOD COUNT 11.6 10^3/uL (4.0-10.5)
[2017-05-30 06:10] LABS: ANION GAP 8 (5-19); BLOOD UREA NITROGEN 22 mg/dL (7-20); CARBON DIOXIDE 23 mmol/L (22-30); CHLORIDE 107 mmol/L (98-107); CREATININE RESULT 0.99 mg/dL (0.52-1.25); GLUCOSE 107 mg/dL (75-110); POTASSIUM 4.5 mmol/L (3.6-5.0); SODIUM 137.6 mmol/L (137-145)
[2017-05-30 06:36] LABS: HEMOGLOBIN 7.6 g/dL (12.0-15.5)
--- NOTE | 2017-05-30 07:05 | PDOC PROGRESS REPORT ---
Subjective Progress Note for:: 05/30/17 Subjective:: 67-year-old white female one day status post total right hip arthroplasty revision patient lying comfortably in bed this morning with leg fully extended noting that after this surgery she feels totally different than before the procedure. She states that it even feels different in recovery from the surgery from the when she had her total hip arthroplasty. She has no other complaints at this time other than noting she had saturated her postop site dressing. Physical Exam Vital Signs: Temp Pulse Resp BP Pulse Ox 36.6 C 80 20 120/72 95 05/30/17 04:00 05/30/17 04:00 05/30/17 04:00 05/30/17 04:00 05/29/17 15:00 Intake & Output 05/28/17 05/29/17 05/30/17 06:59 06:59 06:59 Intake Total 2800 Output Total 4025 Balance -1225 Weight 69 kg General appearance: PRESENT: no acute distress, well-developed, well-nourished Pulses: PRESENT: normal dorsalis pedis pul, +2 pedal pulses bilateral Vascular exam: PRESENT: normal capillary refill Additional comments: Patient's left lower extremity is in full extension sitting upright in bed. The postop site dressing is in place and is saturated with anderson blood. This dressing was changed and wound site was cleaned and new OpSite dressing was placed. Patient is nontender to palpation she has brisk capillary refill her sensory motor functions are intact and distal neurovascular exam is intact as well. Musculoskeletal exam: PRESENT: ambulatory Additional comments: Patient made great progress with physical therapy ambulating 300 feet yesterday. She will continue to work with physical therapy to work towards independent ambulation and increase strength and range of motion of the right lower extremity. Neurological exam: PRESENT: alert, awake, oriented to person, oriented to place , oriented to time, oriented to situation, CN II-XII grossly intact. ABSENT: motor sensory deficit Psychiatric exam: PRESENT: appropriate affect, normal mood. ABSENT: homicidal ideation, suicidal ideation Skin exam: PRESENT: dry, intact, warm. ABSENT: cyanosis, rash Results Laboratory Results: 05/30/17 05:28 05/30/17 05:28 05/30/17 05/30/17 05:28 05:28 WBC 11.6 H RBC 2.47 L Hgb 7.6 L D Hct 21.6 L MCV 88 MCH 30.6 MCHC 35.0 RDW 15.4 H Plt Count 250 Sodium 137.6 Potassium 4.5 Chloride 107 Carbon Dioxide 23 Anion Gap 8 BUN 22 H Creatinine 0.99 Est GFR ( Amer) > 60 Est GFR (Non-Af Amer) 56 L Glucose 107 Calcium 8.0 L Impressions: Pelvis X-Ray 05/29/17 10:26 IMPRESSION: Right hip arthroplasty. Assessment & Plan - Diagnosis (1) Mechanical failure of prosthetic joint Qualifiers: Encounter type: subsequent encounter Qualified Code(s): T84.019D - Broken internal joint prosthesis, unspecified site, subsequent encounter Is this a current diagnosis for this admission?: Yes - Plan Summary Plan Summary: 67-year-old white female one day status post total right hip arthroplasty revision. Patient reports she is very happy with the outcome and feels totally different now than previous to surgery. She has no other complaints at this time. Her OpSite dressing was saturated this morning and was cleaned and replaced. Her hemoglobin levels were low this morning at 7 therefore 2 units of blood will be transfused to correct these levels. Additionally another dose of tranexamic acid was ordered this morning to assist with OpSite bleeding. She will continue to work with physical therapy to improve strength and range of motion of the right lower extremity and we will plan for discharge on postop day 2 or 3.
[2017-05-30] MEDS: SENNOSIDES/DOCUSATE 8.6-50 MG 1 EACH TABLET PO SCH ×2 (09:22→18:09)
[2017-05-30] MEDS: PRENATAL VITAMIN W-O CA NO5/FE FUMARATE/FA CAPSULE PO SCH (09:22)
[2017-05-30] MEDS: POTASSIUM CHLORIDE 10 MEQ TABLET.SA PO SCH (09:22)
[2017-05-30] MEDS: PREGABALIN 75 MG CAPSULE PO SCH ×2 (09:22→21:10)
[2017-05-30] MEDS: TRIAMTERENE/HYDROCHLOROTHIAZIDE 37.5-25 MG TABLET PO SCH (09:22)
[2017-05-30] MEDS: TRANEXAMIC ACID INJ/PF 1,000 MG/10 ML SDV IV SCH ×2 (09:22→14:48)
[2017-05-30] MEDS: OXYCODONE HCL SR 10 MG TABLET PO SCH ×2 (09:23→21:09)
[2017-05-30] MEDS: NORMAL SALINE 10 ML SDV (SCHEDULED) IV SCH ×2 (09:33→21:11)
[2017-05-30] MEDS ORDERED: (PENDING PHARMACY ID) (Triamterene/Hydrochlorothiazid [Triamterene-Hctz 37.5-25 Mg Cp] 1 C PO SCH (10:00)
[2017-05-30] MEDS ORDERED: OXYCODONE HCL IR 5 MG TABLET PO PRN (18:43)
[2017-05-30] MEDS ORDERED: OXYCODONE HCL IR 5 MG TABLET PO ONE (19:30)
[2017-05-30] MEDS: DULOXETINE HCL 30 MG CAPSULE.DR PO SCH (21:09)
[2017-05-30] MEDS: TRAZODONE HCL 50 MG TABLET PO SCH (21:11)
[2017-05-30] MEDS: RIVAROXABAN 10 MG TABLET PO SCH (21:11)
[2017-05-31] MEDS: IBUPROFEN 800 MG in NORMAL SALINE 250 ML IV SCH ×2 (02:43→09:38)
[2017-05-31] MEDS: OXYCODONE HCL IR 5 MG TABLET PO PRN ×2 (02:44→06:47)
[2017-05-31] MEDS: LANSOPRAZOLE 30 MG TAB.RAP.DR PO SCH (05:31)
[2017-05-31 05:59] LABS: MEAN CORPUSCULAR HEMOGLOBIN 30.4 pg (27.0-33.4); MEAN CORPUSCULAR HGB CONC 34.8 g/dL (32.0-36.0); MEAN CORPUSCULAR VOLUME 87 fl (80-97); RED BLOOD COUNT 2.98 10^6/uL (3.72-5.28); RED CELL DISTRIBUTION WIDTH 15.6 % (11.5-14.0); WHITE BLOOD COUNT 10.5 10^3/uL (4.0-10.5)
[2017-05-31] MEDS ORDERED: OXYCODONE HCL IR 5 MG TABLET PO PRN ×2 (06:53→06:54)
--- NOTE | 2017-05-31 06:54 | PDOC DISCHARGE SUMMARY ---
General - Admit/Disc Date/PCP Admission Date/Primary Care Provider: 05/29/17 07:06 ED PHILLIPS, DO Discharge Date: 05/31/17 - Discharge Diagnosis (1) Mechanical failure of prosthetic joint Is this a current diagnosis for this admission?: Yes - Additional Information Resuscitation Status: Do Not Intubate Discharge Diet: As Tolerated, Regular Discharge Activity: Activity As Tolerated, No Driving, No tub bath, Walk Frequently Home Medications: Duloxetine HCl [Cymbalta] 60 mg PO QHS 05/29/17 Potassium Chloride [Klor-Con 10 Meq Tablet.sa] 10 meq PO DAILY 05/29/17 Trazodone HCl [Desyrel] 200 mg PO QHS 05/29/17 Triamterene/Hydrochlorothiazid [Triamterene-Hctz 37.5-25 mg Cp] 1 cap PO DAILY 05/29/17 History of Present Illness History of Present Illness: JAY NESBITT is a 67 year old female with mechanical failure of right hip prosthesis who was admitted through the operating room for total right hip arthroplasty revision. Hospital Course Hospital Course: Patient was admitted to the OR and underwent elective right total hip arthroplasty revision with no complications. She was taken to surgical recovery in satisfactory condition and was returned to the floor and seen by physical therapy for weightbearing as tolerated she is made great progress with physical therapy ambulating up to 600 feet independently. She will be discharged home with home health nursing, home physical therapy and a wheeled walker. Physical Exam Vital Signs: Temp Pulse Resp BP Pulse Ox 36.9 C 72 20 93/48 L 97 05/30/17 23:30 05/30/17 23:30 05/31/17 04:07 05/30/17 23:30 05/30/17 23:30 Intake & Output 05/29/17 05/30/17 05/31/17 06:59 06:59 06:59 Intake Total 2800 2420 Output Total 4025 Balance -1225 2420 Weight 69 kg 82 kg General appearance: PRESENT: no acute distress, well-developed, well-nourished Head exam: PRESENT: atraumatic, normocephalic Pulses: PRESENT: normal dorsalis pedis pul, +2 pedal pulses bilateral Vascular exam: PRESENT: normal capillary refill Additional comments: Right lower extremity is in full extension with postop site wound dressing in place. This dressing was saturated with anderson blood this morning the dressing was removed cleaned and a new dressing was placed. On exam patient has brisk capillary refill, full sensorimotor sensation is intact, and appropriate strength range of motion for this stage in healing process. Musculoskeletal exam: PRESENT: ambulatory Additional comments: Patient has made great progress with physical therapy ambulating up to 600 feet independently. She will be discharged home with home health physical therapy where she will continue to make progress independent ambulation and increase strength and range of motion of the right lower extremity. Neurological exam: PRESENT: alert, awake, oriented to person, oriented to place , oriented to time, oriented to situation, CN II-XII grossly intact. ABSENT: motor sensory deficit Psychiatric exam: PRESENT: appropriate affect, normal mood. ABSENT: homicidal ideation, suicidal ideation Skin exam: PRESENT: dry, intact, warm. ABSENT: cyanosis, rash Results Laboratory Results: 05/31/17 05:40 05/30/17 05:28 05/30/17 05/31/17 12:10 05:40 WBC 10.5 RBC 2.98 L Hgb 9.0 L Hct 26.0 L MCV 87 MCH 30.4 MCHC 34.8 RDW 15.6 H Plt Count 201 Blood Type O POSITIVE Antibody Screen NEGATIVE Impressions: Pelvis X-Ray 05/29/17 10:26 IMPRESSION: Right hip arthroplasty. Plan Discharge Plan: 67-year-old white female 2 days status post total right hip arthroplasty revision. Patient has made great progress with pain management as well as physical therapy ambulating up to 600 feet independently. She will be discharged home with home health nursing, wheeled walker, home physical therapy. The home health nursing service can change the OpSite dressing as they see appropriate. She will return to [facility] for surgery 2 weeks postoperatively for staple removal and reevaluation. Time Spent: Less than 30 Minutes
[2017-05-31] MEDS: SENNOSIDES/DOCUSATE 8.6-50 MG 1 EACH TABLET PO SCH (09:35)
[2017-05-31] MEDS: POTASSIUM CHLORIDE 10 MEQ TABLET.SA PO SCH (09:35)
[2017-05-31] MEDS: PRENATAL VITAMIN W-O CA NO5/FE FUMARATE/FA CAPSULE PO SCH (09:35)
[2017-05-31] MEDS: OXYCODONE HCL SR 10 MG TABLET PO SCH (09:36)
[2017-05-31] MEDS: TRIAMTERENE/HYDROCHLOROTHIAZIDE 37.5-25 MG TABLET PO SCH (09:37)
[2017-05-31] MEDS: PREGABALIN 75 MG CAPSULE PO SCH (09:37)
[2017-05-31] MEDS: NORMAL SALINE 10 ML SDV (SCHEDULED) IV SCH (09:38)
[2017-05-31 10:35] VITALS: BP 93/48
== END 2017-05-31 11:24 | disposition home health service (06) | DRG 468 ==
LOC: INOR 07:06 → 4S 11:44
PROVIDERS: ADMIT Orthopaedic Surgery; ATTEND Orthopaedic Surgery
PROC: 0SPA0JZ Removal of Synthetic Substitute from Right Hip Joint, Acetabular Surface, Open Approach (ICD-10-PCS; 2017-05-29)
PROC: 01NF0ZZ Release Sciatic Nerve, Open Approach (ICD-10-PCS; 2017-05-29)
PROC: 0SRA00A Replacement of Right Hip Joint, Acetabular Surface with Polyethylene Synthetic Substitute, Uncemented, Open Approach (ICD-10-PCS; principal; 2017-05-29 09:15)
DX: T84.090A Other mechanical complication of internal right hip prosthesis, initial encounter (principal); Z96.641 Presence of right artificial hip joint; F32.9 Major depressive disorder, single episode, unspecified; F43.10 Post-traumatic stress disorder, unspecified; F41.9 Anxiety disorder, unspecified; G47.00 Insomnia, unspecified; I10 Essential (primary) hypertension; Z88.8 Allergy status to other drugs, medicaments and biological substances; Z88.6 Allergy status to analgesic agent; Z88.3 Allergy status to other anti-infective agents; Z91.041 Radiographic dye allergy status; Z91.038 Other insect allergy status; Z90.49 Acquired absence of other specified parts of digestive tract; Z90.710 Acquired absence of both cervix and uterus; Z87.891 Personal history of nicotine dependence
CPT/HCPCS: 36415; 36430; 72170; 80048; 85027; 86850; 86900; 86901; 86920; 87070; 87075; 87205; 88304; 94660; 94799; C1713; C1898; C9290; G8978-GP; G8979-GP; G8987-GO; G8988-GO; J0131; J0690; J1170; J1642; J1741; J2250; J2405; J2704; J3010; J3370; J3490; J7050; J7060; P9016

== ENCOUNTER → 2017-06-04 | Outpatient (CLI) | payer MEDICARE, OTHER ==
[2017-06-04 15:57] LABS: ABSOLUTE BASOPHILS # (AUTO) 0.1 10^3/uL (0.0-0.2); ABSOLUTE EOSINOPHILS # (AUTO) 0.3 10^3/uL (0.0-0.6); ABSOLUTE LYMPHOCYTES (AUTO) 2.2 10^3/uL (0.5-4.7); ABSOLUTE MONOCYTES (AUTO) 0.8 10^3/uL (0.1-1.4); ABSOLUTE NEUT (AUTO) 6.1 10^3/uL (1.7-8.2); EOSINOPHILS % (AUTO) 3.4 % (0-6); HEMATOCRIT 31.1 % (36.0-47.0); HEMOGLOBIN 10.7 g/dL (12.0-15.5); LYMPHOCYTES % (AUTO) 23.3 % (13-45); MEAN CORPUSCULAR HEMOGLOBIN 29.8 pg (27.0-33.4); MEAN CORPUSCULAR HGB CONC 34.4 g/dL (32.0-36.0); MEAN CORPUSCULAR VOLUME 87 fl (80-97); MONOCYTES % (AUTO) 8.5 % (3-13); RED BLOOD COUNT 3.58 10^6/uL (3.72-5.28); RED CELL DISTRIBUTION WIDTH 15.4 % (11.5-14.0); SEGMENTED NEUTROPHILS % (AUTO) 63.8 % (42-78); WHITE BLOOD COUNT 9.5 10^3/uL (4.0-10.5)
[2017-06-05 15:49] LABS: ANION GAP 12 (5-19); BLOOD UREA NITROGEN 13 mg/dL (7-20); C-REACTIVE PROTEIN 39.6 mg/L (<10.0); CALCIUM 9.4 mg/dL (8.4-10.2); CARBON DIOXIDE 28 mmol/L (22-30); CHLORIDE 103 mmol/L (98-107); CREATININE RESULT 1.16 mg/dL (0.52-1.25); GLUCOSE 95 mg/dL (75-110); SODIUM 142.7 mmol/L (137-145)
== END ==
LOC: OD 14:49
PROVIDERS: ATTEND Orthopaedic Surgery
DX: Z01.810 Encounter for preprocedural cardiovascular examination (principal); Z01.812 Encounter for preprocedural laboratory examination; Z01.818 Encounter for other preprocedural examination; T84.51XA Infection and inflammatory reaction due to internal right hip prosthesis, initial encounter
CPT/HCPCS: 36415; 80048; 85025; 85652; 86140